=== PATIENT | male | born 1990 | race African-American/Black ===

== ENCOUNTER 2020-09-24 07:37 | Emergency (ER) | payer SELFPAY ==
[~2020-09-24] VITALS: Ht 175.3 cm; Wt 105.0 kg
[2020-09-24 07:40] VITALS: BP 166/95
--- NOTE | 2020-09-24 07:58 | ED.ADGEN ---
General Adult EDM: Chief Complaint: FINGER INJURY HPI: HPI: Patient is a 30-year-old male who presents to the emergency room complaining of left index finger pain. Patient states that yesterday he was helping a friend move a couch when his finger got pinned between the couch and the wall. He states he is able to move his fingers however it is painful. He denies any other injuries. He denies any open wounds. He denies hitting anything with his fist. Review of Systems: Review of Systems: Complete ROS is negative unless otherwise documented in HPI Allergies: Allergies: Allergies Coded Allergies Type Severity Reaction Last Updated Verified No Known Drug Allergies 09/24/20 No Physical Exam: PE: General: Awake, alert, NAD. Well Nourished, well hydrated. Cooperative HEENT: Atraumatic, EOMI, PERRL, airway patent, moist oral mucosa Neck: Supple, trachea midline GI: Soft, nondistended, nontender, no masses MSK: Left hand: bruise to base of index finger, minimal swelling, no recent wounds, range of motion decreased due to pain, intact range of motion and all o ther fingers. Skin: Warm, dry, intact Neuro: A&O x3, speech NL, sensory and motor grossly intact, no focal deficits Psych: Normal affect, normal mood, not suicidal or homicidal Current Patient Data: Vital Signs: Vital Signs Date Time Temp Pulse Resp B/P (MAP) Pulse Ox O2 Delivery O2 Flow Rate FiO2 09/24/20 07:40 98.2 73 16 166/95 (118) 98 Room Air 98.2 EKG: EKG: [] Heart Score: Risk Factors: Risk Factors: DM, Current or recent (<one month) smoker, HTN, HLP, family history of CAD, obesity. Risk Scores: Score 0 - 3: 2.5% MACE over next 6 weeks - Discharge Home Score 4 - 6: 20.3% MACE over next 6 weeks - Admit for Clinical Observation Score 7 - 10: 72.7% MACE over next 6 weeks - Early Invasive Strategies Radiology/Procedures: Radiology/Procedures: [] Course & Med Decision Making: Course & Med Decision Making Pertinent Labs and Imaging studies reviewed. (See chart for details) Patient is a 30-year-old male who presents to the emergency room after cross injury to the hand. X-rays were ordered. There is no obvious fracture on xray. Patient does have a bruise with minimal swelling. At this time there are no signs of infection. Patient's test results and vitals while in the ED were fully reviewed and discussed with the patient. Patient is stable and at this time does not need admission to the hospital. We have discussed strict return precautions and the importance of following up with their Primary Care Physician. Patient stated understanding and was given an opportunity to ask any questions. Patient is in agreement with plan. Mariyaon Disclaimer: Lazarus Disclaimer: This electronic medical record was generated, in whole or in part, using a voice recognition dictation system. Departure Departure Impression: Primary Impression: Crush injury of hand Disposition: 01 DC HOME SELF CARE/HOMELESS Condition: STABLE Referrals: NO PCP (PCP) Patient Instructions: Hand Contusion DEBBI GILLIAM MD Sep 24, 2020 07:58
--- NOTE | 2020-09-24 08:03 | RAD ---
Three-view study left hand Clinical indications: Crush injury. Left hand pain. FINDINGS: No acute fracture or dislocation or lytic process is seen. Scaphoid bone appears intact. No radiopaque foreign body is evident. IMPRESSION: No acute osseous abnormality. Electronically signed by: Wale Talamantes MD (09/24/2020 8:01 AM) [id number]
== END 2020-09-24 08:20 | disposition home or self-care (01) ==
LOC: ER 07:37
DX: S67.22XA Crushing injury of left hand, initial encounter (principal); W23.1XXA Caught, crushed, jammed, or pinched between stationary objects, initial encounter; Y93.89 Activity, other specified; Y92.89 Other specified places as the place of occurrence of the external cause; Y99.8 Other external cause status
CPT/HCPCS: 73130; 99283